=== PATIENT | female | born 1950 | race Two or more races ===

== ENCOUNTER 2019-07-30 08:25 | Inpatient (IN) | payer SELFPAY ==
[~2019-07-30] VITALS: Ht 157.5 cm; Wt 64.5 kg
--- NOTE | 2019-07-30 08:25 | NUR ---
PATINT TO ROOM VIA EMS AND PHYSICIAN AT BDSIDE FOR EVAL
--- NOTE | 2019-07-30 08:30 | NUR ---
ATTEMPTS TIMES 3 TO USE LANGUAGE LINE PATIENT UNABLE TO UNDERSTAND 3 DIFFERENT INTERPERTERS. LANGUAGES TRIED CREOLE, HATIAN CREOLE AND YEMENI. DAUGHTER ON PHONE AND ABLE TO TRANSLATE FOR PATIENT. DAUGHTER DIDNT UNDERSTAND WHY MOTHER UNABLE TO UNDERSTAND HATIAN CREOLE THAT IS THE LANGUAGE SHE SPEAKS. MD AT BEDSIDE
--- NOTE | 2019-07-30 08:45 | NUR ---
PTPRODUCTIVE COUGH NOTED. PT RESTING IN STRETCHER IN NAD WITH EYES CLOSED. PT AWAKENS TO VERBAL STIMULI. DAUGHTER REMAINS AT BEDSIDE TO TRANSLATE.
[2019-07-30 09:05] LABS: HEMATOCRIT 40.2 % (37.0-47.0); HEMOGLOBIN 12.9 g/dl (12.0-16.0); IMMATURE GRANULOCYTES 0.3 % (0.0-5.0); MEAN CELL VOLUME 86.3 fL CALC (80.0-100.0); MEAN CORPUSCULAR HGB 27.7 pG CALC (26.0-32.0); MEAN CORPUSCULAR HGB CONC 32.1 g/dL CAL (32.0-36.0); NEUT# 5.44 thou/uL (2.00-7.15); RED BLOOD COUNT 4.66 mill/uL (4.20-5.60); RED CELL DISTRI WIDTH 12.3 % (11.5-15.5)
[2019-07-30 09:17] LABS: ALBUMIN 3.6 g/dL (3.2-5.0); ALKALINE PHOSPHATASE 74 u/l (38-126); ANION GAP 9 (6-22 (CALC)); BILIRUBIN, TOTAL 0.6 mg/dL (0.0-1.4); BUN 9 mg/dL (8-23); BUN/CREATININE RATIO 10 (12-20 (CALC)); CARBON DIOXIDE 30 mmol/l (22-30); CHLORIDE 100 mmol/l (95-108); CREATININE 0.8 mg/dL (0.5-1.0); GFR > 60 ML/MIN (>=60 (CALC)); GFR FOR AFR.AMER. > 60 ML/MIN (>=60 (CALC)); LIPASE 34 u/l (23-300); POTASSIUM 3.4 mmol/l (3.5-5.1); SGOT/AST 34 u/l (9-36); SODIUM 135 mmol/l (137-146); TOTAL PROTEIN 7.4 g/dL (6.3-8.2)
--- NOTE | 2019-07-30 09:40 | NUR ---
NASOPHARENGEAL COVID SWAB COMPLETED TO RIGHT NARES. PT TOLERATED WELL.
[2019-07-30 09:47] LABS: C-REACTIVE PROTEIN 6.6 mg/dL (0-0.9)
--- NOTE | 2019-07-30 10:20 | NUR ---
UNABLE TO ESTABLISH IV SITE TO THE AC SITE AT THIS TIME. NOTIFIED.
--- NOTE | 2019-07-30 10:45 | NUR ---
RICHY RN AT BEDSIDE TO ATEMPT IV ACCESS. UNABLE TO OBTAIN. NOTIFIED.
--- NOTE | 2019-07-30 11:05 | NUR ---
XRAY WILLING TO ATTEMPT CTA CHEST WITH IV THAT IS ESTABLISHED.
--- NOTE | 2019-07-30 12:01 | NUR ---
PT ASSISTED UP TO BSC, URINE SPECIMEN OBTAINED AND SENT, PT BACK TO BED WITH STEADY GAIT. CALL HERNANDEZ WITHIN REACH
[2019-07-30 12:18] LABS: URINE BILIRUBIN - DIPSTICK NEGATIVE (NEGATIVE); URINE BLOOD DIPSTICK TRACE-INTACT (NEGATIVE); URINE COLOR YELLOW; URINE GLUCOSE - DIPSTICK >=1000 mg/dL (NEGATIVE); URINE KETONE TRACE mg/dL (NEGATIVE); URINE LEUK ESTERASE NEGATIVE (NEGATIVE); URINE NITRITE - DIPSTICK NEGATIVE (Negative); URINE PH 6.5 (4.5-8.0); URINE PROTEIN - DIPSTICK 30 mg/dL (NEG-TRACE); URINE SPECIFIC GRAVITY 1.015; URINE UROBILINOGEN - DIPSTICK 0.2 E.U./dL (0.2)
[2019-07-30 12:24] LABS: URINE RBC 0-2 RBC/hpf (0-5)
[2019-07-30 12:25] LABS: URINE EPITHELIAL CELLS FEW EPI/hpf (0-FEW)
--- NOTE | 2019-07-30 13:00 | NUR ---
PT RESTING IN STRETCHER IN NAD AND DENIES ANY NEEDS AT THIS TIME DAUGHTER AWARE OF PENDING RESULTS.
--- NOTE | 2019-07-30 13:45 | NUR ---
DAUGHTER LEAVING AT THIS TIME. CONTACT INFORMATION PROVIDED.
--- NOTE | 2019-07-30 14:30 | NUR ---
PT RESTING IN STRETCHER WITH EYES CLOSED. RESP EVEN AND UNLABORED. VSS.
--- NOTE | 2019-07-30 15:09 | NUR ---
DAUGHTER CONTACT INFORMATION ANTONIO MARCUM [phone]
--- NOTE | 2019-07-30 15:55 | NUR ---
PT REPORT CALLED TO DARRIAN RUEDA.
--- NOTE | 2019-07-30 16:15 | NUR ---
Admission Note Report Given to: DARRIAN RUEDA Transported by: X Wheelchair Stretcher Transported with: X Nurse Transporter X Patent IV O2 X Fiberglass Insulation Installer Location: ICU X MS2 PT TO ROOM 290 VIA WHEELCHIAR ON TELE MONITOR. CARE RELINQUISHED TO DARRIAN RUEDA.
--- NOTE | 2019-07-30 16:20 | NUR ---
PT ARRIVED TO UNIT VIA STRETCHER WITH ER STAFF; ALERT AND ORIENTED; CREOLE SPEAKING ONLY. AMBULATED TO BED INDEPENDENLTY. DENIES PAIN. RESPIRATIONS EVEN AND UNLABORED ON ROOM AIR. PLACED IN AIRBORNE/CONTACT ROOM FOR POSITIVE RAPID COVID 19 RESULTS. ORIENTED TO ROOM AND CALL LIGHT SYSTEM. VSS. TEMP 100.0. ACCU CHECK 277. PLAN OF CARE DISCUSSED WITH DAUGHTER TRAFFIC CLERK. PT ENCOURAGED TO VERBALIZE CONCERNS. STATES UNDERSTANDING. SAFETY MEASURES IN PLACE. CALL LIGHT WITHIN REACH.
[2019-07-30 16:56] VITALS: BP 152/74
--- NOTE | 2019-07-30 17:37 | NUR ---
SPOKE WITH DAUGHTER, ANTONIO, TO OBTAIN MEDICAL HISTORY INFORMATION. MED REC COMPLETED.
[2019-07-30] MEDS ORDERED: METFORMIN500 M2 PO (17:43)
[2019-07-30] MEDS ORDERED: ZESTRIL10 M1 PO (17:44)
[2019-07-30] MEDS ORDERED: NORVASC5 M1 PO (17:44)
--- NOTE | 2019-07-30 18:28 | NUR ---
TROPONIN DRAWN AND SENT TO LAB.
--- NOTE | 2019-07-30 19:00 | NUR ---
RECEIEVED REPORT FROM NURSE RUEDA, PATIENT RESTING IN BED, REMAINS ON AIRBORNE,CONTACT PRECAUTION, EVEN UNLABORED BREATHING CALL LIGHT AT REACH.
[2019-07-30 19:10] VITALS: BP 115/70
--- NOTE | 2019-07-30 21:00 | NUR ---
PATIENT ALERT ABLE TO MAKE NEEDS KNOWN, WITH EMS SITE G20 ON HEFT HAND SALINE LOCK, REMAINS ON TELE SR 70, DENIES CHEST DISCOMFORTS, EVEN UNLABORED BREATHING CALL LIGHT AT REACH.
[2019-07-30 23:40] VITALS: BP 157/76
--- NOTE | 2019-07-31 | NUR ---
TROPONIN DRAWN AT THIS TIME, SENT TO LAB, PATIENT COMFORTABLY RESTING IN BED, EVEN UNLABORED BREATHING CALL LIGHT AT REACH.
[2019-07-31 03:45] VITALS: BP 115/63
--- NOTE | 2019-07-31 04:27 | NUR ---
PATIENT RESTING IN BED, EYES CLOSED, EVEN UNLABORED BREATHING CALL LIGHT AT REACH.
[2019-07-31 06:57] LABS: CHOLESTEROL HDL RATIO 3.7 (<4.4 (CALC))
[2019-07-31 07:52] VITALS: BP 137/59
--- NOTE | 2019-07-31 08:00 | NUR ---
RECIEVED REPORT FROM [facility]. PT RESTING IN SEMI FOWLERS POSITION UPON ENTERING THE ROOM. INTRODUCED SELF TO PT. PT IS A/O X 3 AND AMBULATORY.PT IS CREOLE SPEAKING. VITALS OBATINED. BP 137/59, HR 72 AND O2 95% ON ROOM AIR. HEART RHYTHM NORMAL, BOWEL SOUNDS ACTIVE IN ALL QUANDRANTS, LUNG SOUND ARE DIMINISHED BUT RESPIRATIONS ARE EVEN AND UNLABORED. RADIAL AND PEDAL PULSES ARE STRONG, NO EDEMA IN LOWER EXTREMIETIES. IV FLUSHED, SITE APPEARS HEALTHY AND PATENT. TELE IN PLACE. PT DENIES ANY PAIN OR DISCOMFORTS AT THIS TIME. ALL SAFTEY PRECAUTIONS IN PLACE WITH CALL LIGHT IN REACH. WILL CONTINUE TO MONITOR.
[2019-07-31 11:07] VITALS: BP 126/71
--- NOTE | 2019-07-31 12:00 | NUR ---
PT RESTING IN SEMI FOWLERS POSITION. BREATHING IS EVEN AND UNLABORED WITH NO SIGNS OF DISTRESS.TELE IN PLACE, ALONG WITH ISOLATION PRECAUTIONS. PT DENIES ANY PAIN OR DISCOMFORTS AT THIS TIME. ALL SAFTEY PRECAUTIONS IN PLACE WITH CALL LIGHT IN REACH. WILL CONTINUE TO MONITOR.
[2019-07-31 15:04] VITALS: BP 112/68
--- NOTE | 2019-07-31 15:41 | NUR ---
PT RESTING IN SEMI FOWLERS POSTITION WATCHING TV.BREATHING IS EVEN AND UNLABORED WITH NO SIGNS OF DISTRESS. TELE IN PLACE.INFORMED THAT PT HAD A 100.3 TEMPETURE BY LASHAY FREED. REASSESSED TEMPETURED, RESULTS 100.3. TYLENOL GIVEN. PT DENIES ANY PAIN OR DISCOMFORTS AT THIS TIME. ALL SAFTEY PRECAUTIONS IN PLACE WITH CALL LIGHT IN REACH. WILL CONTINUE TO MONIOR TEMPETURE AND PT.
--- NOTE | 2019-07-31 17:39 | NUR ---
ATTEMPED TO INSERT NEW IV ON PT TWICE, UNSUCCESSFUL BOTH TIMES.
--- NOTE | 2019-07-31 18:12 | NUR ---
PT SLEEPING IN SEMI FOWLERS POSITION. BREATHING IS EVEN AND UNLABORED.TEMP 98.8 WHEN REASSESED.NO SIGNS OF ANY PAIN OR DISCOMFORTS AT THIS TIME. TELE IN PLACE. ALL SAFTEY PECAUTIONS IN PLACE WITH CALL LIGHT IN REACH. WILL CONTINUE TO MONITOR.
--- NOTE | 2019-07-31 19:00 | NUR ---
RECEIVED REPORT FROM NURSE JOHNSON PATIENT RESTING IN BED, EVEN UNLABORED BREATHING CALL LIGHT AT REACH.
[2019-07-31 20:35] VITALS: BP 107/63
--- NOTE | 2019-07-31 21:00 | NUR ---
PATIENT AWAKE ALERT ORIENTED, WITH SALINE LOCK ON LEFT HAND PATENT FLUSHES WELL, REMAINS ON TELE SB 58, DENIES PAIN OR DISCOMFORTS BREATHING EVEN UNLABORED, CALL LIGHT AT REACH.
[2019-07-31 23:45] VITALS: BP 129/69
--- NOTE | 2019-08-01 00:11 | NUR ---
PATIENT APPEARS TO BE SLEEPING WITH EYES CLOSED, RESPIRATION EVEN UNLABORED CALL LIGHT AT REACH.
[2019-08-01 04:08] VITALS: BP 140/72
[2019-08-01 05:04] LABS: HEMATOCRIT 40.9 % (37.0-47.0); HEMOGLOBIN 12.7 g/dl (12.0-16.0); IMMATURE GRANULOCYTES 0.5 % (0.0-5.0); MEAN CELL VOLUME 86.8 fL CALC (80.0-100.0); MEAN CORPUSCULAR HGB CONC 31.1 g/dL CAL (32.0-36.0); NEUT# 4.94 thou/uL (2.00-7.15); RED BLOOD COUNT 4.71 mill/uL (4.20-5.60); RED CELL DISTRI WIDTH 12.3 % (11.5-15.5)
[2019-08-01 05:28] LABS: ALBUMIN 3.2 g/dL (3.2-5.0); ALKALINE PHOSPHATASE 64 u/l (38-126); ANION GAP 10 (6-22 (CALC)); BILIRUBIN, TOTAL 0.6 mg/dL (0.0-1.4); BUN 11 mg/dL (8-23); BUN/CREATININE RATIO 17 (12-20 (CALC)); C-REACTIVE PROTEIN 4.8 mg/dL (0-0.9); CARBON DIOXIDE 28 mmol/l (22-30); CHLORIDE 101 mmol/l (95-108); CREATININE 0.7 mg/dL (0.5-1.0); GFR > 60 ML/MIN (>=60 (CALC)); GFR FOR AFR.AMER. > 60 ML/MIN (>=60 (CALC)); POTASSIUM 3.9 mmol/l (3.5-5.1); SGOT/AST 29 u/l (9-36); SODIUM 135 mmol/l (137-146); TOTAL PROTEIN 6.8 g/dL (6.3-8.2)
--- NOTE | 2019-08-01 05:57 | NUR ---
PATIENT RESTING IN BED EYES CLOSED, BREATHING EVEN UNLABORED, CALL LIGHT AT REACH.
--- NOTE | 2019-08-01 08:00 | NUR ---
RECIEVED REPORT FROM [facility]. PT RESTING IN SEMI FOWLERS POSITION EATING BREAKFAST.PT IS A/O X3. PT IS CREOLE SPEAKING. ASSESMENT AND VITALS OBTAINED. BP 122/64, HR 67, O2 97% ON ROOM AIR. HEART RYTHM IS NORMAL, BOWEL SOUNDS ARE HYPOACTIVE IN ALL QUADRANTS, LUNG SOUNDS ARE DIMINISHED. RESPIRATIONS ARE EVEN AND UNLABORED WITH NO SIGNS OF DISTRESS.RADIAL AND PEDAL PULSES ARE STRONG WITH NORMAL CAPILLARY REFILL. IV WAS FLUSHED, SITE APPEARS HEALTHY AND PATENT. TELE IN PLACE. MORNING MEDS WERE ADMINISTERED WITH NO DIFFICULTY. PT COVID SWAB RESULTS ARE POSITIVE, ISOLATION PRECAUTIONS IN PLACE. PT DENIES ANY PAIN OR DISCOMFORTS AT THIS TIME. ALL SAFTEY PRECAUTIONS IN PLACE WITH CALL LIGHT IN REACH. WILL CONTINUE TO MONITOR.
[2019-08-01 08:20] VITALS: BP 122/64
--- NOTE | 2019-08-01 12:00 | NUR ---
PT RESTING IN SEMI FOWLERS POSTION EATING LUNCH. BREATHING IS EVEN AND UNLABORED WITH NO SIGNS OF ANY DISTRESS. ISOLATION PRECAUTIONS STILL IN PLACE. PT DENIES ANY PAIN OR DISCOMFORTS AT THIS TIME. ALL SAFTEY PRECAUTIONS IN PLACE WITH CALL LIGHT. WILL CONTINUE TO MONITOR.
[2019-08-01 12:06] VITALS: BP 119/65
[2019-08-01 16:16] VITALS: BP 118/65
--- NOTE | 2019-08-01 16:30 | NUR ---
PT RESTING IN SEMI FOWLERS POSTION. BREATHING IS EVEN AND UNLABORED WITH NO SIGNS OF DISTRESS. PT DENIES ANY PAIN OR DISCOMFORTS.ALL SAFTEY PRECAUTIONS IN PLACE WITH CALL LIGHT IN REACH. WILL CONTINUE TO MONITOR.
--- NOTE | 2019-08-01 18:33 | NUR ---
PT RESTING IN SEMI FOWLERS POSITION WATCHING TV. BREATHING IS EVEN AND UNLABORED. PT DENIES ANY PAIN OR DISCOMFORTS AT THIS TIME. TELE IN PLACE. ALL SAFTEY PRECAUTIONS IN PLACE WITH CALL LIGHT IN REACH. WILL CONTINUE TO MONITOR.
--- NOTE | 2019-08-01 19:45 | NUR ---
REPORT FROM CHUCK CASEY. PT SITTING UP IN BED. NO APPARENT DISTRESS NOTED. PT DENIES ANY PAIN OR DISCOMFORT. IV SITE APPEARS HEALTHY. IMAGING ENGINEER IN PLACE. DISCUSSED POC. CALL LIGHT WITHIN REACH. WILL CONTINUE TO MONITOR.
[2019-08-01 21:41] VITALS: BP 105/64
--- NOTE | 2019-08-01 23:37 | NUR ---
PT RESTING IN BED WITH EYES CLOSED. NO APPARENT DISTRESS NOTED. CALL LIGHT WITHIN REACH. WILL CONTINUE TO MONITOR.
[2019-08-02] VITALS (8 sets, daily range): BP systolic 82–130; BP diastolic 49–71
--- NOTE | 2019-08-02 01:31 | NUR ---
LOW BP REPORTED FROM AID. UPON ENTERING ROOM PT LAYING IN BED GRABBING AT ABD. NEW SET OF VS OBTAINED 110/62, 60, 18, 97.8, O2 100%RA. BS 106. PT DENIES ANY PAIN OR DISCOMFORT, TRANSLATED BY RT VIA TELEPHONE. LODE MINER GAVE PT A BACK RUB AND EXTRA PILLOWS UPON REQUEST. CALL LIGHT WITHIN REACH. WILL CONTINUE TO MONITOR.
--- NOTE | 2019-08-02 05:06 | NUR ---
PT RESTING IN BED. NO APPARENT DISTRESS NOTED. CALL LIGHT WITHIN REACH. WILL CONTINUE TO MONITOR.
--- NOTE | 2019-08-02 08:00 | NUR ---
RECIEVED REPORT FROM JACINTO YI. SITTING UP ON SIDE OF BED EATING BREAKFAST WHEN ENTERING THE ROOM. BREATHING IS EVEN AND UNLABORED. INTRODUCED SELF TO PT, PT CEROLE SPEAKING. ASSESSMENT AND VITALS OBTAINED. BP 93/60, HR 71, O2 94% ON ROOM AIR. HEART RHYTHM NORMAL, BOWEL SOUNDS ACTIVE IN ALL QUADRANTS, LUNG SOUNDS ARE DIMINISHED. PT DID HAVE A BOWEL MOVEMENT AT THIS TIME. RADIAL AND PEDAL PULSES ARE NORMAL WITH NORMAL CAPILLARY REFILL. NO EDEMA IN LOWER EXTREMITIES. PT DENIES ANY PAIN OR DISCOMFORTS AT THIS TIME. TELE IN PLACE. ALL SAFTEY PRECAUTIONS IN PLACE WITH CALL LIGHT IN REACH. WILL CONTINUE TO MONITOR.
--- NOTE | 2019-08-02 10:07 | NUR ---
REASSESSMENT OF PT VITALS. BP 108/62, HR 65, O2 99% ON ROOM AIR.NO SIGNS OF ANY DISTRESS. PT DENIES ANY PAIN OR DISCOMFORTS AT THIS TIME. ALL SAFTEY PRECAUTIONS IN PLACE WITH CALL LIGHT IN REACH. WILL CONTINUE TO MONITOR
--- NOTE | 2019-08-02 13:20 | NUR ---
EMS IV SITE REMOVED AT THIS TIME DUE TO EXPIRATION WITH CATHETER INTACT,NEW #22G TO RAC STARTED ON 1ST ATTEMPT BY THIS WRITTER;PT TOLERATED WELL;NS RE-STARTED @ 100ML/HR,SITE;PT DENIES ANY ADDITIONAL NEEDS AT THIS TIME AND IS ENCOURAGED TO CALL FOR ASSISTANCE IF NEEDED;CALL LIGHT IN REACH;WILL CONTINUE TO MONITOR
[2019-08-02 14:16] LABS: ALBUMIN 3.4 g/dL (3.2-5.0); ALKALINE PHOSPHATASE 70 u/l (38-126); ANION GAP 11 (6-22 (CALC)); BILIRUBIN, TOTAL 0.5 mg/dL (0.0-1.4); BUN 8 mg/dL (8-23); BUN/CREATININE RATIO 11 (12-20 (CALC)); C-REACTIVE PROTEIN 3.7 mg/dL (0-0.9); CARBON DIOXIDE 29 mmol/l (22-30); CHLORIDE 100 mmol/l (95-108); CREATININE 0.7 mg/dL (0.5-1.0); GFR > 60 ML/MIN (>=60 (CALC)); GFR FOR AFR.AMER. > 60 ML/MIN (>=60 (CALC)); POTASSIUM 3.6 mmol/l (3.5-5.1); SGOT/AST 26 u/l (9-36); SODIUM 136 mmol/l (137-146); TOTAL PROTEIN 7.2 g/dL (6.3-8.2)
--- NOTE | 2019-08-02 15:46 | NUR ---
PT RESTING IN SEMI FOWLERS POSITION. BREATHING IS EVEN AND UNLABORED. PT DENIES ANY PAIN OR DISCOMFORTS AT THIS TIME.IV RUNNIG AT 100 ML NS ORDER.TELE IN PLACE. ALL SAFTEY PRECAUTIONS IN PLACE WITH CALL LIGHT IN REACH. WILL CONTINUE TO MONITOR
--- NOTE | 2019-08-02 16:27 | NUR ---
PT RESTING IN SEMI FOWLERS POSITION WATCHING TV. BREATHING IS EVEN AND UNLABORED. TELE IN PLACE.IV RUNNING AT 100 ML NS ORDERED. PT DENIES ANY PAIN OR DISCOMFORTS AT THIS TIME. ALL SAFTEY PRECAUTIONS IN PLACE WITH CALL LIGHT IN REACH. WILL CONTINUE TO MONITOR.
--- NOTE | 2019-08-02 18:00 | NUR ---
PT RESTING IN BED WACTCHING TV. BREATHING IS EVEN AND UNLABORED. PT DENIES ANY PAIN OR DISCOMFORTS AT THSI TIME. ALL SAFTEY PREACUTIONS IN PLACE WITH CALL LIGHT IN REACH. WILL CONTINUE TO MONITOR.
--- NOTE | 2019-08-02 19:20 | NUR ---
REPORT FROM CHUCK CASEY. PT SITTING UP IN BED. NO APPARENT DISTRESS NOTED. PT DENIES ANY PAIN OR DISCOMFORT. IV SITE APPEARS HEALTHY. SENIOR SQL DBA IN PLACE. DISCUSSED POC. CALL LIGHT WITHIN REACH. WILL CONTINUE TO MONITOR.
--- NOTE | 2019-08-02 20:53 | NUR ---
PT MEDICATED ORDERED. ASSESSMENT COMPLETE. DENIES ANY PAIN OR DISCOMFORT. SNACK PROVIDED AT THIS TIME. CALL LIGHT WITHIN REACH. WILL CONTINUE TO MONITOR.
[2019-08-03 00:10] VITALS: BP 142/77
--- NOTE | 2019-08-03 00:32 | NUR ---
ASSISTED PT TO BATHROOM. PT AMBULATED WITH STEADY GAIT. PT VOIDED WITHOUT DIFFICULTY. BACK TO BED. BACK RUB PROVIDED TO PT. NO OTHER WANTS OR NEEDS. CALL LIGHT WITHIN REACH. WILL CONTINUE TO MONITOR.
[2019-08-03 04:30] VITALS: BP 135/72
--- NOTE | 2019-08-03 04:55 | NUR ---
X2 ATTEMPTS TO OBTAIN LABS AT THIS TIME WITHOUT SUCCESS. WILL NOTIFY DAY SHIFT. PT WISHES NOT TO BE STUCK AGAIN RIGHT NOW.
[2019-08-03 08:35] VITALS: BP 145/86
--- NOTE | 2019-08-03 08:35 | NUR ---
PT LAYING IN BED. UNABLE TO COMMUNICATE WITH PT DUE TO LANGUAGE BARRIER. CALLED DAUGHTER ANTONIO. EXPLAINED POC. DAUGHTER ABLE TO TRANSLATE VIA TELEPHONE WITH PT. NO SIGNS OF DISTRESS. DISCUSSED POC. CALL LIGHT IN REACH. CONTINUE TO MONITOR.
--- NOTE | 2019-08-03 09:20 | NUR ---
VENIPUNCTURE FOR REPEAT LABS COLLECTED. PT TOLERATED WELL.
[2019-08-03 09:50] LABS: C-REACTIVE PROTEIN 2.3 mg/dL (0-0.9)
[2019-08-03 11:03] VITALS: BP 137/67
[2019-08-03] MEDS ORDERED: NORVASC5 M1 PO (14:40)
[2019-08-03] MEDS ORDERED: ZESTRIL10 M1 PO (14:40)
[2019-08-03] MEDS ORDERED: METFORMIN500 M2 PO (14:40)
[2019-08-03] MEDS ORDERED: GLIPIZIDE5 M2 PO (14:40)
[2019-08-03] MEDS ORDERED: DOXYCYCL HYC100 MG PO (14:40)
[2019-08-03 15:00] VITALS: BP 137/86
--- NOTE | 2019-08-03 17:25 | NUR ---
IV REMOVED, INTACT UPON REMOVAL.
--- NOTE | 2019-08-03 17:31 | NUR ---
Discharge instructions given to daughter.Daughter verbalizes understanding of same. Discharged in stable condition via Wheelchair to Home with staff. All belongings sent with pt.
== END 2019-08-03 17:25 | disposition home or self-care (01) | DRG 177 ==
LOC: ED 08:25 → ED-I 10:40 → ED 12:44 → ED-I 12:45 → MS2 13:49
PROVIDERS: Family Medicine; Nurse Practitioner Family; ADMIT Internal Medicine; ATTEND Internal Medicine
DX: U07.1 COVID-19 (principal); J12.89 Other viral pneumonia; I10 Essential (primary) hypertension; E11.65 Type 2 diabetes mellitus with hyperglycemia; I95.9 Hypotension, unspecified; Z79.84 Long term (current) use of oral hypoglycemic drugs
CPT/HCPCS: J1650; Q9967